=== PATIENT | male | born 1945 | race Caucasian/White ===

== ENCOUNTER → 2016-09-19 | Outpatient (CLI) | payer MEDICARE, BC ==
[~2016-09-19] MED LIST: /FENO48TA OR; AMLO10TA OR; AMLO5TAB OR; ASPI81TA83 OR; BISO10TA2 OR; CALC1CAP PO; CIPR500T89 PO; HYDR25TA6 OR; METR500T10 PO; NIFE60TA61 PO; PRAV10TA PO; ZEBE5TAB OR
[2016-09-19 14:01] LABS: ALBUMIN 3.5 GM/DL (3.2-5.2); CALCIUM LEVEL 8.6 MG/DL (8.8-10.2); CREATININE FOR GFR 1.83 MG/DL (0.70-1.30); GLOMERULAR FILTRATION RATE 38.9 (>42); MAGNESIUM LEVEL 2.2 MG/DL (1.8-2.4)
[2016-09-19 14:08] LABS: POTASSIUM SERUM 5.5 MEQ/L (3.5-5.1)
[2016-09-19 14:15] LABS: BASO # 0.1 K/mm3 (0.0-0.2); BASO % 0.8 % (0.0-1.0); EOS # 0.3 K/mm3 (0.0-0.50); EOS % 3.9 % (0.0-3.0); LARGE UNSTAINED CELL # 0.1 K/mm3 (0.0-0.4); LARGE UNSTAINED CELL % 1.9 % (0.0-4.0); LYMPH # 2.5 K/mm3 (1.5-4.5); LYMPH % 33.1 % (24.0-44.0); MEAN CORPUSCULAR HGB CONC 31.9 g/dl (32.0-36.5); MEAN CORPUSCULAR VOLUME 94.3 fl (80.0-96.0); MONO # 0.5 K/mm3 (0.0-0.8); MONO % 6.6 % (0.0-5.0); NEUTROPHILS # 4.1 K/mm3 (1.8-7.7); NEUTROPHILS % 53.7 % (36.0-66.0); PLATELET COUNT, AUTOMATED 196 k/mm3 (150-450); RED CELL DISTRIBUTION WIDTH 14.1 % (11.5-14.5); WHITE BLOOD COUNT 7.6 K/mm3 (4.0-10.0)
== END ==
LOC: M SMT 07:48
PROVIDERS: ATTEND Internal Medicine Nephrology
DX: Z94.0 Kidney transplant status (principal); E83.42 Hypomagnesemia

== ENCOUNTER → 2017-01-06 | Outpatient (REF) | payer MEDICARE, BC ==
[~2017-01-06] MED LIST changes: +CIPR-249 PO; -CIPR500T89 PO; +METR1TAB66 PO; -METR500T10 PO; -PRAV10TA PO; +PRAV10TA4 PO
== END ==
LOC: M LAB REF 12:45
PROVIDERS: ATTEND Internal Medicine Nephrology
DX: Z94.0 Kidney transplant status (principal)

== ENCOUNTER → 2017-04-07 | Outpatient (REF) | payer MEDICARE, BC | LOC: M LAB REF 13:20 | PROVIDERS: ATTEND Internal Medicine Nephrology | DX: Z94.0 Kidney transplant status (principal) ==

== ENCOUNTER → 2017-09-17 | Outpatient (REF) | payer MEDICARE, BC ==
[2017-09-18 11:16] LABS: CHOLESTEROL LEVEL 120 MG/DL (<200); CHOLESTEROL RISK RATIO 3.333 (<5); HDL CHOLESTEROL 36 MG/DL (>40); LDL CHOLESTEROL 54.2 MG/DL (<100); NON-HDL-C 84 MG/DL; TRIGLYCERIDES LEVEL 149 MG/DL (<150)
[2017-09-20 10:11] LABS: FK 506 (TACROLIMUS) LABCORP 5.1 ng/mL (2.0-20.0)
== END ==
LOC: M LAB REF 10:23
DX: Z94.0 Kidney transplant status (principal); Z48.22 Encounter for aftercare following kidney transplant; E78.2 Mixed hyperlipidemia
CPT/HCPCS: 80061

== ENCOUNTER → 2018-01-20 | Outpatient (REF) | payer MEDICARE, BC ==
[2018-01-22 14:39] LABS: FK 506 (TACROLIMUS) LABCORP 6.5 ng/mL (2.0-20.0)
== END ==
LOC: M LAB REF 13:22
DX: Z94.0 Kidney transplant status (principal)
CPT/HCPCS: 80197

== ENCOUNTER → 2018-05-05 | Outpatient (REF) | payer MEDICARE, BC ==
[~2018-05-05] MED LIST changes: +METR-201 PO; -METR1TAB66 PO; +NIFE60TA40 PO; -NIFE60TA61 PO
[2018-05-05 14:45] LABS: CHOLESTEROL RISK RATIO 3.176 (<5)
[2018-05-08 00:10] LABS: ANCA-ATYPICAL <1:20 titer (Neg:<1:20); ANTI DOUBLE STRAND-DNA AB 1 IU/mL (0-9); CYTOPLASMIC NEUTROP AB ANCA-C <1:20 titer (Neg:<1:20); PERINUCLEAR AB ANCA-P <1:20 titer (Neg:<1:20)
== END ==
LOC: M LAB REF 14:05
PROVIDERS: ATTEND Internal Medicine Nephrology
DX: Z94.0 Kidney transplant status (principal); Z48.22 Encounter for aftercare following kidney transplant; E78.2 Mixed hyperlipidemia

== ENCOUNTER → 2018-12-10 | Outpatient (REF) | payer MEDICARE, BC ==
[~2018-12-10] MED LIST changes: -/FENO48TA OR; -METR-201 PO; +METR-265 PO; +TRIC1TAB OR
[2018-12-10 15:34] LABS: CHOLESTEROL RISK RATIO 3.459 (<5)
[2018-12-17 09:15] LABS: ANCA-ATYPICAL <1:20 titer (Neg:<1:20); ANTI DS-DNA AB <1:10 titer (.); CYTOPLASMIC NEUTROP AB ANCA-C <1:20 titer (Neg:<1:20); PERINUCLEAR AB ANCA-P <1:20 titer (Neg:<1:20)
== END ==
LOC: M LAB REF 13:19
PROVIDERS: ATTEND Internal Medicine Nephrology
DX: R31.9 Hematuria, unspecified (principal); R80.1 Persistent proteinuria, unspecified; Z79.899 Other long term (current) drug therapy

== ENCOUNTER → 2019-03-16 | Outpatient (REF) | payer MEDICARE, BC | LOC: M LAB REF 13:28 | PROVIDERS: ATTEND Internal Medicine Nephrology | DX: Z94.0 Kidney transplant status (principal) ==

== ENCOUNTER → 2019-06-24 | Outpatient (REF) | payer MEDICARE, BC | LOC: M LAB REF 13:15 | PROVIDERS: ATTEND Internal Medicine Nephrology | DX: Z94.0 Kidney transplant status (principal) ==

== ENCOUNTER → 2019-09-24 | Outpatient (REF) | payer MEDICARE, BC | LOC: M LAB REF 16:51 | PROVIDERS: ATTEND Internal Medicine Nephrology | DX: Z94.0 Kidney transplant status (principal) ==

== ENCOUNTER → 2019-12-24 | Outpatient (REF) | payer MEDICARE, BC | LOC: M LAB REF 17:18 | PROVIDERS: ATTEND Internal Medicine Nephrology | DX: Z94.0 Kidney transplant status (principal) ==

== ENCOUNTER → 2020-03-27 | Outpatient (REF) | payer MEDICARE, BC | LOC: M LAB REF 17:17 | PROVIDERS: ATTEND Internal Medicine Nephrology | DX: Z94.0 Kidney transplant status (principal) ==

== ENCOUNTER → 2020-06-23 | Outpatient (REF) | payer MEDICARE, BC | LOC: M LAB REF 17:00 | PROVIDERS: ATTEND Internal Medicine Nephrology | DX: Z94.0 Kidney transplant status (principal) ==

== ENCOUNTER → 2020-10-02 | Outpatient (REF) | payer MEDICARE, BC | LOC: M LAB REF 17:25 | PROVIDERS: ATTEND Internal Medicine Nephrology | DX: Z94.0 Kidney transplant status (principal) ==

== ENCOUNTER → 2021-01-16 | Outpatient (REF) | payer MEDICARE, BC | LOC: M LAB REF 12:52 | PROVIDERS: ATTEND Internal Medicine Nephrology | DX: Z94.0 Kidney transplant status (principal); E83.42 Hypomagnesemia ==

== ENCOUNTER → 2021-04-05 | Outpatient (REF) | payer MEDICARE, BC | LOC: M LAB REF 13:07 | PROVIDERS: ATTEND Internal Medicine Nephrology | DX: Z94.0 Kidney transplant status (principal); E83.42 Hypomagnesemia ==

== ENCOUNTER → 2021-07-10 | Outpatient (REF) | payer MEDICARE, BC | LOC: M LAB REF 16:41 | PROVIDERS: ATTEND Internal Medicine Nephrology | DX: Z94.0 Kidney transplant status (principal) ==

== ENCOUNTER → 2021-09-21 | Outpatient (REF) | LOC: M LAB 13:45 ==